=== PATIENT | male | born 1955 | race Caucasian/White ===

== ENCOUNTER 2017-01-03 14:53 | Outpatient (CLI) | payer BC ==
--- NOTE | 2017-01-05 14:10 | Ultrasound Report ---
BILATERAL CAROTID ARTERY ULTRASOUND: 01/03/2017 CLINICAL HISTORY: Pulse in his ears. Examination was done with a Ning color Doppler scanning system. TECHNIQUE: Real-time sonographic vascular imaging was performed by the coastal tug mate through the carotid arteries utilizing both color-flow and Doppler spectral analysis. Multiple veterans employment representative static images were saved for review. Vessel PSV cm/sec 2D Plaque Estimate % ICA/CCA PSV EDV cm/sec % Stenosis RCCA Prox 104 -- RCCA Dist 80 22 RECA 190 -- RT BULB 78 -- 0.98 24 TAMIR Prox 71 -- 0.89 23 TAMIR Mid 76 -- 0.95 24 TAMIR Dist 90 -- 1.13 30 RVA 47 RVA flow direction: Antegrade. Vessel PSV cm/sec 2D Plaque Estimate % ICA/CCA PSV EDV cm/sec % Stenosis LCCA Prox 106 -- LCCA Dist 79 24 LECA 168 -- LFT BULB 50 -- 0.63 17 LICA Prox 82 -- 1.04 32 LICA Mid 75 -- 0.95 35 LICA Dist 46 -- 0.58 17 LVA 79 LVA flow direction: Antegrade. Velocity criteria are extrapolated from diameter data as defined by the Society of Radiologists in Ultrasound Consensus Conference Radiology 2003; 229; 340- 346. Degree of Stenosis % ICA PSV cm/sec Plaque Estimate % ICA/CCA RSV Ratio ICA EDV cm/sec Normal < 125 None < 2.0 < 40 <50 < 125 < 50 < 2.0 < 40 50-69 125 - 130 >/= 50 2.0 - 4.0 40 - 100 >/= 70 but less than near occlusion > 230 >/= 50 > 4.0 > 100 Near occlusion High, low, or undetectable Visible lumen Variable Variable Total occlusion Undetectable No detectable lumen Not applicable Not applicable FINDINGS: Mild to moderate plaque is noted at each carotid artery bifurcation with no hemodynamically significant stenosis in either common or internal carotid artery. Doppler values are slightly elevated in each external carotid artery. Visually, however, no significant stenosis was detected in the external carotid arteries. Vertebral arteries bilaterally show antegrade flow. IMPRESSION: MILD TO MODERATE PLAQUE IS DETECTED AT EACH CAROTID ARTERY BIFURCATION WITH NO HEMODYNAMICALLY SIGNIFICANT STENOSIS DETECTED. MTDD
== END 2017-01-03 14:54 | disposition home or self-care (01) ==
LOC: DI 14:53
PROVIDERS: ATTEND Nurse Practitioner Family
DX: H93.19 Tinnitus, unspecified ear (principal)
CPT/HCPCS: 93880

== ENCOUNTER 2017-03-18 12:12 | Outpatient (CLI) | payer BC ==
--- NOTE | 2017-03-18 16:26 | XRAY Report ---
THREE-VIEW RIGHT KNEE: 03/18/2017 CLINICAL INDICATION: Lr's cyst. FINDINGS: AP, lateral, sunrise views of the right knee demonstrate no evidence of fracture or disloc ation. A tiny osteophyte is noted on the superior patella. No radiopaque foreign body is seen in th e soft tissues. No joint effusion is present. IMPRESSION: TINY MARGINAL OSTEOPHYTE ON THE SUPERIOR PATELLA. JOB #: [id number] EXT JOB #:[id number]
== END 2017-03-18 12:13 | disposition home or self-care (01) ==
LOC: DI.S 12:12
PROVIDERS: ATTEND Family Medicine
DX: M71.21 Synovial cyst of popliteal space [Baker], right knee (principal)

== ENCOUNTER 2017-06-28 13:22 | Outpatient (CLI) | payer BC ==
--- NOTE | 2017-06-28 19:34 | XRAY Report ---
TWO VIEW THORACIC SPINE: 06/28/2017 CLINICAL INDICATION: Pain. Frontal and lateral views of the thoracic spine demonstrate mild degenerative disk disease. Minimal dextroscoliosis is present. No paraspinal hematoma is seen. IMPRESSION: MILD DEGENERATIVE DISK DISEASE, WITH MINIMAL DEGENERATIVE DEXTROSCOLIOSIS. NO EVIDENCE OF FRACTURE. JOB #: [id number] EXT JOB #:[id number]
--- NOTE | 2017-06-28 19:39 | XRAY Report ---
THREE VIEW RIGHT SHOULDER: 06/28/2017 CLINICAL INDICATION: Pain. Internal and external rotational views and a scapular Y-view of the right shoulder demonstrate no nishant dence of fracture or dislocation. The joint spaces are preserved. No radiopaque foreign body is see n in the soft tissues. IMPRESSION: NORMAL RIGHT SHOULDER. JOB #: [id number] EXT JOB #:[id number]
== END 2017-06-28 13:23 | disposition home or self-care (01) ==
LOC: DI.S 13:22
PROVIDERS: ATTEND Physician Assistant
DX: M25.511 Pain in right shoulder (principal); M51.34 Other intervertebral disc degeneration, thoracic region; M41.54 Other secondary scoliosis, thoracic region
CPT/HCPCS: 72070

== ENCOUNTER 2017-09-16 08:53 | Inpatient (IN) | payer BC ==
--- NOTE | 2017-09-16 09:22 | ED Physician Documentation ---
PD HPI FOCAL NEURO - Stated complaint Stated Complaint: SPEECH DIFFICULTIES - Chief complaint Chief Complaint: Neuro - History obtained from History obtained from: Patient, Family () - History of Present Illness Timing - onset: Yesterday Timing - details: Still present Severity of deficit: Moderate Associated symptoms: Other (slurred speech; difficulty finding words.) Baseline status: positive: A&OX3, ambulatory, indep Similar symptoms before: Has not had sx before - Additional information Additional information: The patient is a 62-year-old male who presents with slurred speech and difficulty finding words. His symptoms started yesterday (according to his 's observation) or the day before (according to the patient) and persists today. He denies numbness or weakness. He denies headache, visual disturbance , chest pain, nausea, or vomiting. He denies history of similar symptoms in the past. Past medical history is significant for pulsatile tinnitus. He underwent carotid duplex scan in March 2017, which he states revealed no significant stenosis. Review of Systems Constitutional: denies: Fever, Fatigue Eyes: denies: Decreased vision Ears: reports: Tinnitus/ringing (History of tinnitus, but none currently.) Nose: denies: Congestion Throat: denies: Sore throat Cardiac: denies: Chest pain / pressure Respiratory: denies: Dyspnea, Cough GI: denies: Abdominal Pain, Nausea, Vomiting : denies: Dysuria Skin: denies: Rash Musculoskeletal: denies: Back pain, Extremity pain Neurologic: reports: Difficulty speaking. denies: Focal weakness, Numbness, Altered mental status, Headache PD PAST MEDICAL HISTORY - Past Medical History Cardiovascular: None Respiratory: None Neuro: Other (Pulsatile tinnitus) Endocrine/Autoimmune: None - Past Surgical History Ortho: Other (Knee surgery) - Present Medications Home Medications: Ambulatory Orders Medication Instructions Recorded Confirmed No Known Home Medications [No 09/16/17 09/16/17 Known Home Medications] - Allergies Allergies/Adverse Reactions: Allergies Allergy/AdvReac Type Severity Reaction Status Date / Time No Known Drug Allergies Allergy Verified 09/16/17 09:11 - Living Situation Living Situation: reports: With spouse/s.o. Living Arrangement: reports: At home - Social History Does the pt smoke?: No Does the pt drink ETOH?: Yes - Immunizations Immunizations are current?: Yes PD ED PE NORMAL - Vitals Vital signs reviewed: Yes (Hypertensive) - General General: Alert and oriented X 3, Well developed/nourished - HEENT HEENT: Atraumatic, PERRL, EOMI, Moist mucous membranes, Pharynx benign - Neck Neck: Supple, no meningeal sign, No adenopathy, No JVD - Cardiac Cardiac: RRR, No murmur - Respiratory Respiratory: No respiratory distress, Clear bilaterally - Abdomen Abdomen: Soft, Non tender - Back Back: No CVA TTP - Derm Derm: No rash - Extremities Extremities: No edema, No calf tenderness / cord - Neuro Neuro: Alert and oriented X 3, biochemistry specialist 2-12 intact, No motor deficit, No sensory deficit, Other (Struggles to articulate the words he wants to speak. Enunciates words with difficulty.) Eye Opening: Spontaneous Motor: Obeys Commands Verbal: Oriented GCS Score: 15 NIHSS - Time Time: 09:05 - Level of Consciousness Level of consciousness: (0) Alert, Keenly responsive LOC Questions: (0) Answers both Q's correct LOC Commands: (0) Performs both correctly - Gaze Best Gaze: (0) Normal - Visual Visual: (0) No loss - Facial Palsy Facial Palsy: (0) Normal, symmetrical movement - Motor Arms (both separate) Motor Arm (right): (0) No drift Motor Arm (left): (0) No drift - Motor Legs (both separate) Motor Leg (right): (0) No drift Motor Leg (left): (0) No drift - Limb Ataxia Limb Ataxia: (0) Absent - Sensory Sensory: (0) Normal - Best Language Best Language: (1) [id number] - Dysarthria Dysarthria: (0) Normal - Extinction and Inattention (formally neg Extinction and inattention: (0) No abnormality - Total Score/Results Total Score/Result: 1 Results - Vitals Vitals: Vital Signs - 24 hr 09/16/17 09/16/17 09/16/17 09:01 09:30 10:35 Temperature 36.5 C Heart Rate 74 72 71 Respiratory 25 H 20 14 Rate Blood Pressure 170/100 H 170/100 H 177/88 H O2 Saturation 25 L 96 96 09/16/17 11:57 Temperature Heart Rate 78 Respiratory 20 Rate Blood Pressure 183/77 H O2 Saturation 96 Oxygen O2 Source Room air - EKG (time done) 09:15 Rate: Rate (enter#) (72) Rhythm: NSR, LAE [place]: Normal Intervals: Normal ND QRS: LVH Ischemia: ST elevation c/w repol Compare to prior EKG: Old EKG unavailable Computer interpretation: Agree with computer - Labs Labs: Laboratory Tests 09/16/17 09/16/17 09/16/17 09:10 09:10 09:10 WBC 7.7 RBC 5.40 Hgb 15.8 Hct 47.7 MCV 88.3 MCH 29.2 MCHC 33.1 RDW 13.5 Plt Count 342 MPV 8.8 Neut # 4.6 Lymph # 2.1 [place] # 0.8 Eos # 0.1 Baso # 0.1 Absolute Nucleated RBC 0.01 Nucleated RBC % 0.1 PT 11.3 INR 1.0 APTT 32.1 Sodium 139 Potassium 3.7 Chloride 97 L Carbon Dioxide 28 Anion Gap 14.0 H BUN 16 Creatinine 0.9 Estimated GFR (MDRD) 86 L Glucose 101 H Calcium 9.9 Total Bilirubin 0.7 AST 26 ALT 23 Alkaline Phosphatase 65 Total Protein 7.8 Albumin 4.8 Globulin 3.0 Albumin/Globulin Ratio 1.6 Lipase 39 - Rads (name of study) Head CT stroke protocol Radiology: Prelim report reviewed, EMP read contemporaneously, See rad report ( Possible left hyperdense MCA sign, with possible areas of early left MCA territory edema. Low threshold for MRI.) PD MEDICAL DECISION MAKING - ED course Complexity details: reviewed results, re-evaluated patient, considered differential, d/w patient, d/w family, d/w water resource consultant ED course: The patient's presentation is most consistent with CVA involving the left middle cerebral artery distribution. CT scan stroke protocol reveals no intracranial hemorrhage, but does reveal possible left hyperdense MCA sign with possible areas of early left MCA territory edema. I discussed his condition with neurologist at [facility]. He recommends further stroke workup at this hospital, and advises no benefit to transferring to an acute care facility. Treatment in the emergency department included administration of 4 baby aspirin orally. I discussed his presentation with Dr. Fontanez, the hospitalist, who will admit him for further evaluation and treatment. Departure - Departure Disposition: 66 [facility] DC/Xfer Clinical Impression: Cerebrovascular accident (CVA) Qualifiers: Precerebral and cerebral artery: middle cerebral artery Laterality of affected vessel: left Condition: Stable Discharge Date/Time: 09/16/17 12:55
[2017-09-16 09:30] LABS: BASOPHILS # (AUTO) 0.1 10^3/uL (0.0-0.1); BASOPHILS % (AUTO) 1.1 %; EOSINOPHILS # (AUTO) 0.1 10^3/uL (0.0-0.7); EOSINOPHILS % (AUTO) 1.5 %; HGB - HEMOGLOBIN 15.8 g/dL (14.0-18.0); LYMPHOCYTES # (AUTO) 2.1 10^3/uL (1.5-3.5); MEAN CORPUSCULAR HEMOGLOBIN 29.2 pg (27.0-31.0); MEAN CORPUSCULAR HGB CONC 33.1 g/dL (32.0-36.0); MEAN CORPUSCULAR VOLUME 88.3 fL (80.0-94.0); MEAN PLATELET VOLUME 8.8 fL (7.4-11.4); MONOCYTES # (AUTO) 0.8 10^3/uL (0.0-1.0); MONOCYTES % (AUTO) 10.3 %; NEUTROPHILS # (AUTO) 4.6 10^3/uL (1.5-6.6); NEUTROPHILS % (AUTO) 60.1 %; PLT - PLATELET COUNT 342 10^3/uL (130-450); RED CELL DISTRIBUTION WIDTH 13.5 % (12.0-15.0); WHITE BLOOD COUNT 7.7 x10^3/uL (4.8-10.8)
[2017-09-16 09:41] LABS: PT - PROTHROMBIN TIME 11.3 secs (9.9-12.6)
[2017-09-16 09:44] LABS: ALBUMIN 4.8 g/dL (3.2-5.5); ALBUMIN/GLOBULIN RATIO 1.6 (1.0-2.2); BILIRUBIN,TOTAL 0.7 mg/dL (0.2-1.0); CALCIUM 9.9 mg/dL (8.5-10.3); CREATININE 0.9 mg/dL (0.6-1.2); TOTAL PROTEIN 7.8 g/dL (6.7-8.2)
--- NOTE | 2017-09-16 09:48 | CT Report ---
EXAM: CT HEAD EXAM DATE: 09/16/2017 09:28 AM. CLINICAL HISTORY: Slurred speech. COMPARISON: None. TECHNIQUE: Multiaxial CT images were obtained from the foramen magnum to the vertex. Reformats: Coron al. IV contrast: None. In accordance with CT protocol optimization, one or more of the following dose reduction techniques w ere utilized for this exam: automated exposure control, adjustment of mA and/or KV based on patient s ize, or use of iterative reconstructive technique. FINDINGS: Parenchyma: There is a prominent appearance of the left MCA. It measures 45 Hounsfield units, borderl ine increased and concerning for a possible hyperdense MCA sign. In addition, there are subtle areas of low-attenuation in the MCA territory deep white matter that co uld represent early edema. There is a 7 mm low attenuating focus adjacent to the left frontal horn de ep white matter, likely a small lacunar infarct of uncertain chronicity. Extraaxial Spaces: Normal for age. No subdural or epidural collections identified. Ventricles: Normal in size and position. Sinuses and Orbits: Imaged paranasal sinuses, orbits, and mastoids show no significant abnormality. Bones: No evidence of fracture or calvarial defect. IMPRESSION: Possible left hyperdense MCA sign, with possible areas of early left MCA territory edema. Low threshold for MRI. Note: These critical results were discussed with Dr. Holland on the day of the exam 09/16/2017 at 9:42 AM, and he expressed understanding. RADIA Referring Provider Line: [phone] SITE ID: [id number]
[2017-09-16] MEDS ORDERED: ASPIRIN CHEW 81 MG TABLET PO STA (09:52)
[2017-09-16] MEDS ORDERED: ACETAMINOPHEN 325 MG TABLET PO PRN (12:26)
[2017-09-16] MEDS ORDERED: PROCHLORPERAZINE 10 MG/2 ML VIAL IVP PRN (12:26)
[2017-09-16] MEDS ORDERED: SODIUM CHLORIDE FLUSH 0.9% 10 ML SYRINGE IVP PRN (12:26)
[2017-09-16] MEDS ORDERED: ZOLPIDEM 5 MG TABLET PO PRN (12:26)
[2017-09-16] MEDS ORDERED: GADOBUTROL 7.5 MMOL/7.5 ML VIAL ONE (13:11)
[2017-09-16] MEDS ORDERED: GADOBUTROL 7.5 MMOL/7.5 ML VIAL IVP ONE (15:03)
[2017-09-16] MEDS: SODIUM CHLORIDE FLUSH 0.9% 10 ML SYRINGE IVP SCH ×2 (15:30→20:59)
--- NOTE | 2017-09-16 16:32 | MRI Report ---
EXAMS: MRI BRAIN WITHOUT CONTRAST. MRA BRAIN WITHOUT CONTRAST. EXAM DATE: 09/16/2017 03:27 PM. CLINICAL HISTORY: 8-year-old with 9 month history of pulsatile tinnitus presenting with 1-2 days of s lurred speech COMPARISON: CT head 09/16/2017. TECHNIQUE: MRI: Multiplanar, multisequence T1-weighted and fluid-sensitive MRI sequences of the brain were performed. Sequences optimized for routine evaluation. Other: None. Post-processing: None. IV C ontrast: None. MRA: Multiplanar, multisequence T1-weighted and fluid-sensitive MRA sequences of the brain were perfo rmed. Other: None. Post-processing: Multiplanar 3D MIP reconstructions. IV Contrast: None. FINDINGS: MRI: Brain Volume: Normal for age. Parenchyma/Dura: No acute parenchymal hemorrhage, mass, or midline shift. There is mild bilateral are as of T2/FLAIR signal hyperintensity seen. There is small volume restricted diffusion of the left put amen extending to the left centrum semiovale. No evidence of hemorrhagic transformation. There is ass ociated T2/FLAIR signal hyperintensity. Punctate foci of old hemorrhagic blood products are seen with in the right putamen and right precuneus region. Ventricles/Cisterns: No hydrocephalus. No abnormal extra-axial fluid collection or hemorrhage. Orbits: Symmetric and unremarkable. Sella Turcica: The pituitary gland, cavernous sinuses, suprasellar cistern and optic chiasm are unrem arkable. IAC: Symmetric and unremarkable. Vasculature: Normal signal flow void is seen in the major arterial structures at the skull base. Sinuses: No acute appearing sinus disease. Bones: No focal pathologic appearing marrow signal changes. Other: None. MRA: RIGHT Internal Carotid (ICA): No aneurysm, stenosis or anomaly. Middle Cerebral (MCA): No aneurysm, stenosis or anomaly. Anterior Cerebral (VINCE): Hypoplastic right A1 segment with normal-appearing A2 and distal VINCE branche s secondary to flow through the anterior communicating artery. No aneurysm. Posterior Cerebral (REGISTERED ACCOUNT ADMINISTRATOR): -type REGISTERED ACCOUNT ADMINISTRATOR with a hypoplastic right P1 segment. No aneurysm. Posterior Communicating (P-COM): No aneurysm, stenosis or anomaly. 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 LEFT Internal Carotid (ICA): No aneurysm, stenosis or anomaly. Middle Cerebral (MCA): The M1 segment appears normal. There is greater than 70% stenosis of a proxima l M2 sylvian branch. Anterior Cerebral (VINCE): No aneurysm, stenosis or anomaly. Posterior Cerebral (REGISTERED ACCOUNT ADMINISTRATOR): REGISTERED ACCOUNT ADMINISTRATOR. No aneurysm. Posterior Communicating (P-COM): No aneurysm, stenosis or anomaly. Vertebral: No aneurysm, stenosis or anomaly in the visualized upper vertebral artery. MIDLINE Anterior Communicating (A-COM): No aneurysm, stenosis or anomaly. 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 Other: None. IMPRESSION: MRI HEAD: 1.Small acute infarct (1-7 days) of the left putamen to left centrum semiovale. No evidence of hemor rhagic transformation. 2. Additional mild white matter changes that may represent sequela of chronic small vessel ischemic d isease. 3. Old hemorrhagic blood products are seen within the right putamen and right precuneus region. Etiol ogies include microhemorrhages from hypertension or old hemorrhagic lacunar infarcts. 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 2. There is greater than 70% stenosis of a proximal M2 sylvian branch of the left MCA. 3. 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 4. 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 5. No definite intracranial aneurysm seen. RADIA The above findings were discussed with Dr Palma by Dr. Alvino Rice at 16:30 hrs on 09/16/17. Referring Provider Line: [phone] SITE ID: [id number]
--- NOTE | 2017-09-16 16:32 | MRI Report ---
EXAM: MR ANGIOGRAM NECK EXAM DATE: 09/16/2017 03:27 PM. CLINICAL HISTORY: 62-year-old with 1-2 history of slurred speech COMPARISON: None. TECHNIQUE: Multiplanar, multisequence MRA sequences of the neck were performed. Other: None. Post-pro cessing: Multiplanar 3D MIP reconstructions. IV Contrast: 7 cc Gadavist. Evaluation of arterial sten osis is based on a NASCET method of measurement. FINDINGS: RIGHT Common Carotid: Patent. No dissection or significant stenosis. Internal Carotid: Patent. No dissection or significant stenosis. External Carotid: Patent. No dissection or significant stenosis. 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 LEFT Common Carotid: Patent. No dissection or significant stenosis. Internal Carotid: Patent. No dissection or significant stenosis. External Carotid: Patent. No dissection or significant stenosis. Vertebral: Patent. No dissection or significant stenosis. Intracranial Circulation: Please refer to separately dictated MRA head for further description of int racranial findings. Other: The soft tissues, bones, and lung apices are unremarkable. IMPRESSION: 1. Hypoplastic right vertebral artery appears terminates as right PICA. 2. Otherwise no seen definite stenosis or dissection seen within the vasculature of the neck. 3. Please refer to separately dictated MRA head 09/16/2017 for description of intracranial findings. RADIA The above findings were discussed with Dr Palma by Dr. Alvino Rice at 16:30 hrs on 09/16/17. Referring Provider Line: [phone] SITE ID: [id number]
--- NOTE | 2017-09-16 16:32 | MRI Report ---
EXAMS: MRI BRAIN WITHOUT CONTRAST. MRA BRAIN WITHOUT CONTRAST. EXAM DATE: 09/16/2017 03:27 PM. CLINICAL HISTORY: 8-year-old with 9 month history of pulsatile tinnitus presenting with 1-2 days of s lurred speech COMPARISON: CT head 09/16/2017. TECHNIQUE: MRI: Multiplanar, multisequence T1-weighted and fluid-sensitive MRI sequences of the brain were performed. Sequences optimized for routine evaluation. Other: None. Post-processing: None. IV C ontrast: None. MRA: Multiplanar, multisequence T1-weighted and fluid-sensitive MRA sequences of the brain were perfo rmed. Other: None. Post-processing: Multiplanar 3D MIP reconstructions. IV Contrast: None. FINDINGS: MRI: Brain Volume: Normal for age. Parenchyma/Dura: No acute parenchymal hemorrhage, mass, or midline shift. There is mild bilateral are as of T2/FLAIR signal hyperintensity seen. There is small volume restricted diffusion of the left put amen extending to the left centrum semiovale. No evidence of hemorrhagic transformation. There is ass ociated T2/FLAIR signal hyperintensity. Punctate foci of old hemorrhagic blood products are seen with in the right putamen and right precuneus region. Ventricles/Cisterns: No hydrocephalus. No abnormal extra-axial fluid collection or hemorrhage. Orbits: Symmetric and unremarkable. Sella Turcica: The pituitary gland, cavernous sinuses, suprasellar cistern and optic chiasm are unrem arkable. IAC: Symmetric and unremarkable. Vasculature: Normal signal flow void is seen in the major arterial structures at the skull base. Sinuses: No acute appearing sinus disease. Bones: No focal pathologic appearing marrow signal changes. Other: None. MRA: RIGHT Internal Carotid (ICA): No aneurysm, stenosis or anomaly. Middle Cerebral (MCA): No aneurysm, stenosis or anomaly. Anterior Cerebral (VINCE): Hypoplastic right A1 segment with normal-appearing A2 and distal VINCE branche s secondary to flow through the anterior communicating artery. No aneurysm. Posterior Cerebral (AUTO SERVICE ADVISOR): -type AUTO SERVICE ADVISOR with a hypoplastic right P1 segment. No aneurysm. Posterior Communicating (P-COM): No aneurysm, stenosis or anomaly. 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 LEFT Internal Carotid (ICA): No aneurysm, stenosis or anomaly. Middle Cerebral (MCA): The M1 segment appears normal. There is greater than 70% stenosis of a proxima l M2 sylvian branch. Anterior Cerebral (VINCE): No aneurysm, stenosis or anomaly. Posterior Cerebral (AUTO SERVICE ADVISOR): AUTO SERVICE ADVISOR. No aneurysm. Posterior Communicating (P-COM): No aneurysm, stenosis or anomaly. Vertebral: No aneurysm, stenosis or anomaly in the visualized upper vertebral artery. MIDLINE Anterior Communicating (A-COM): No aneurysm, stenosis or anomaly. 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 Other: None. IMPRESSION: MRI HEAD: 1.Small acute infarct (1-7 days) of the left putamen to left centrum semiovale. No evidence of hemor rhagic transformation. 2. Additional mild white matter changes that may represent sequela of chronic small vessel ischemic d isease. 3. Old hemorrhagic blood products are seen within the right putamen and right precuneus region. Etiol ogies include microhemorrhages from hypertension or old hemorrhagic lacunar infarcts. 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 2. There is greater than 70% stenosis of a proximal M2 sylvian branch of the left MCA. 3. 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 4. 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 5. No definite intracranial aneurysm seen. RAD[facility] The above findings were discussed with Dr Palma by Dr. Alvino Rice at 16:30 hrs on 09/16/17. Referring Provider Line: [phone] SITE ID: [id number]
[2017-09-16] MEDS ORDERED: ASPIRIN CHEW 81 MG TABLET PO SCH (17:00)
[2017-09-16] MEDS ORDERED: CLOPIDOGREL 300 MG TABLET PO ONE (17:02)
[2017-09-16] MEDS: CARVEDILOL 3.125 MG TABLET PO SCH ×2 (18:44→20:55)
--- NOTE | 2017-09-16 21:59 | Ultrasound Preliminary Report ---
Exam: US CAROTID DOPPLER COMPLETE IMPRESSION: Bilateral predominantly soft carotid artery plaque with no hemodynamically significant st enosis. Validated velocity measurements with angiographic measurements and velocity criteria are extrapolated from diameter data as defined by the Society of Radiologists in Ultrasound Consensus Conference Radi ology 2003; 229;340-346. RADIA SITE ID: [id number]
[2017-09-16] MEDS ORDERED: ATORVASTATIN 40 MG TABLET PO SCH (22:00)
--- NOTE | 2017-09-16 22:21 | Ultrasound Report ---
EXAM: CAROTID DOPPLER ULTRASOUND EXAM DATE: 09/16/2017 05:19 PM. CLINICAL HISTORY: CVA. COMPARISON: None. TECHNIQUE: Real-time sonographic vascular imaging was performed by the manager progressive care through the [employer] d arterial system with a linear transducer utilizing color-flow, Doppler flow and spectral analysis. Multiple circulation sales representative static images were saved for review. FINDINGS: Chavez scale evaluation of the carotid arteries demonstrates mild, predominantly soft plaque in the right common and proximal internal carotid artery. Mild to moderate soft plaque also seen in t he distal left common and internal carotid artery. Peak systolic velocities and ICA/CCA ratios are wi thin normal limits as follows Right: RCCA Prox: PSV 84 cm/sec. RCCA Dist: PSV 82 cm/sec, EDV 17 cm/sec. RECA: PSV 130 cm/sec. RT BULB: PSV 67 cm/sec, EDV 17 cm/sec, ICA/CCA ratio 0.81. TAMIR Prox: PSV 63 cm/sec, EDV 26 cm/sec, ICA/CCA ratio 0.76. TAMIR Mid: PSV 76 cm/sec, EDV 20 cm/sec, ICA/CCA ratio 0.92. TAMIR Dist: PSV 55 cm/sec, EDV 16 cm/sec, ICA/CCA ratio 0.67, tortuous. RVA: PSV 37 cm/sec. RVA flow direction: Antegrade. Abnormal waveform but antegrade. Left: LCCA Prox: PSV 83 cm/sec. LCCA Dist: PSV 67 cm/sec, EDV 20 cm/sec. LECA: PSV 105 cm/sec. LT BULB: PSV 85 cm/sec, EDV 18 cm/sec, ICA/CCA ratio 1.26. LICA Prox: PSV 80 cm/sec, EDV 30 cm/sec, ICA/CCA ratio 1.19. LICA Mid: PSV 94 cm/sec, EDV 41 cm/sec, ICA/CCA ratio 1.40. LICA Distal: PSV 64 cm/sec, EDV 24 cm/sec, ICA/CCA ratio 0.95. LVA: PSV 47 cm/sec. LVA flow direction: Antegrade. Other: None. IMPRESSION: Bilateral predominantly soft carotid artery plaque with no hemodynamically significant st enosis. Validated velocity measurements with angiographic measurements and velocity criteria are extrapolated from diameter data as defined by the Society of Radiologists in Ultrasound Consensus Conference Radi ology 2003; 229;340-346. [facility] Referring Provider Line: [phone] SITE ID: [id number]
[2017-09-17] MEDS: SODIUM CHLORIDE FLUSH 0.9% 10 ML SYRINGE IVP SCH (05:45)
[2017-09-17 06:51] LABS: BUN - BLOOD UREA NITROGEN 15 mg/dL (6-20); CALCIUM 9.2 mg/dL (8.5-10.3); CARBON DIOXIDE - CO2 28 mmol/L (21-32); CHLORIDE 98 mmol/L (101-111); CHOLESTEROL 232 mg/dL; CREATININE 0.9 mg/dL (0.6-1.2); GFR - MDRD 86 (>89); GLUCOSE 114 mg/dL (70-100); HDL CHOLESTEROL 58 mg/dL; LDL CHOLESTEROL,CALCULATED 153 mg/dL; LDL/HDL RATIO 2.6 (<3.6); SODIUM 139 mmol/L (135-145); VLDL CHOLESTEROL 21 mg/dL
[2017-09-17 07:44] VITALS: BP 163/86
[2017-09-17] MEDS ORDERED: ASPIRIN 325 MG TABLET PO SCH (08:00)
[2017-09-17] MEDS: CARVEDILOL 3.125 MG TABLET PO SCH (08:01)
[2017-09-17] MEDS ORDERED: FAMOTIDINE 20 MG TABLET PO SCH (09:00)
[2017-09-17] MEDS ORDERED: ASPIRIN CHEW 81 MG TABLET PO SCH (09:00)
[2017-09-17] MEDS ORDERED: CLOPIDOGREL 75 MG TABLET PO SCH (09:00)
[2017-09-17] MEDS ORDERED: POLYETHYLENE GLYCOL 3350 17 GM PACKET PO SCH (09:00)
--- NOTE | 2017-09-17 09:16 | Discharge Plan ---
Discharge Plan Disposition: Home, Self Care Condition: Stable Prescriptions: Atorvastatin Calcium [Lipitor] 80 mg PO DAILY #30 tablet Carvedilol [Coreg] 3.125 mg PO BID #60 tablet Clopidogrel [Plavix] 75 mg PO DAILY #30 tablet Diet: Cardiac Activity Restrictions: No strenuous activity til seen by Shower Restrictions: No Driving Restrictions: No Instruction Topics: Atorvastatin tablets, Clopidogrel Bisulfate Oral tablet, Carvedilol tablets, Hypertension Dc, Heart Risk, ED Stroke Completed, ED Cholesterol High Additional Instructions or Follow Up instructions: Start taking : 1 baby Aspirin daily Plavix daily Lipitor daily (at night) Coreg twice a day (with meals) Make an appointment at [facility] to be seen soon. Make an appointment at a Speech Therapy clinic. If you have any new neurological symptoms, go to your closest ER quickly. No strenuous exercise and decrease your workload at your place of employment for approximately the next 4 weeks (or til OKd to resume it, by your PCP or Draw In Hand). See your PCP in 1-2 weeks in follow-up and to be referred to a Draw In Hand for stress testing and BP and cholesterol management. No Smoking: If you smoke, Please STOP! Call for help. Follow-up with: Zora Celaya PA [Primary Care Provider] -
--- NOTE | 2017-09-17 20:06 | HISTORY & PHYSICAL EXAMINATION ---
DATE OF SERVICE: 09/16/2017 Physician: Siria Palma MD DATE OF ADMISSION: 09/16/2017. HISTORY OF PRESENT ILLNESS: This is a 62-year-old white male who takes no prescription medications. He remembers being told that he had hypertension and was advised to start antihypertensives but never did because he "does not believe in taking medications." (He told me that he thinks that blood pressure medications "do more harm than good.") The patient reports that he has had increased stress over the past 1 month related to his work. He states that about 2-1/2 days ago, he developed a foggy feeling and inability to find the right words, requiring forced slow speech to say his feelings clearly. 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 He denied any headache, double vision, weakness in any extremities. There was recent diarrhea about a week previously that lasted for approximately 4 days, and he thought this was from eating bad food. There have been no changes in medications or recent trips. He did tell his about these feelings. She urged him to come to the emergency room, and he finally did, approximately 2-1/2 days after the onset of symptoms. In the emergency room, his brain imaging does show evidence of a subacute stroke , and therefore, he is admitted for management. PAST MEDICAL HISTORY: Probable hypertension, according to the patient, and he denies any other past medical history. MEDICATIONS AT HOME: None. The patient then states that he does take a baby aspirin daily but "did not consider this a daily medication" ALLERGIES: NONE. REVIEW OF SYSTEMS: The patient has suffered episodic tinnitus and has not yet sought medical attention for this. He had recent diarrhea as above, now cleared. Other than these symptoms, a comprehensive review of systems was performed and is negative except for above. FAMILY HISTORY: On his father's side, there is heart disease, and his uncle on the mother's side had heart disease. SOCIAL HISTORY: The patient is a nonsmoker who never smoked, drinks social alcohol, has never used illicit drugs; however, he has recently used some topical marijuana application. PHYSICAL EXAMINATION GENERAL: A white male who is in no distress but does appear anxious. VITAL SIGNS: Blood pressure 170/100 and as high as 183/77 in the emergency room. Pulse is 70-80, in sinus rhythm. He is afebrile. Respiratory rate was 25 on presentation, which was felt to be from being anxious. Currently, his respiratory rate is 18. HEENT: Possible asymmetry to his lower face with a droop on the right side, otherwise normal wexcept he is wearing glasses. His oral mucosa is moist. Retinal exam showed no areas of retinal hemorrhage or AV nicking with normal-appearing retinal vessels. NECK: No JVD. No carotid bruits are heard. No thyromegaly or lymphadenopathy. LUNGS: Clear. HEART: Heart sounds normal. No audible murmur. ABDOMEN: Soft, normal bowel sounds, nontender. No organomegaly or ascites. EXTREMITIES: No clubbing, cyanosis or edema. NEUROLOGIC: Motor strength is equal bilaterally in the upper and lower extremities. Sensory exam is grossly normal bilaterally. Balance tests are normal. Possible facial muscle asymmetry. He does have some slowing of speech and word finding difficulty. LABORATORY DATA: Sodium 139, potassium 3.7, BUN 16, creatinine 0.9. Normal liver tests. Troponin not detectable. CBC normal. INR normal. IMAGING: Chest x-ray was not done. His head CT showed: possible left hyperdense MCA sign with areas of early left MCA territory edema, and an MRI of the brain was recommended. EKG: Normal sinus rhythm, LVH voltage with strain pattern. No old EKG is available for comparison. IMPRESSION 1. Subacute cerebrovascular accident, documented by imaging. Symptoms are dysarthria and possibly facial droop. 2. Hypertension, which is poorly controlled and probably longstanding since there is evidence of left ventricular hypertrophy by electrocardiogram. 3. Tinnitus that is intermittent, never had workup. 4. Noncompliance with antihypertensive medication recommendations. PLAN: Admit the patient and place him on telemetry to rule out arrhythmia, specifically fibrillation as the cause for the stroke. Obtain imaging studies to rule out a source of embolus, including echo for clot and for intracardiac shunt and to evaluate for LVH, which is seen on EKG. Order troponins x3, since the EKG is abnormal, to rule out an NE. Obtain brain imaging, including brain MRI and MRA and neck MRA, also confirm with carotid Doppler. Start the patient on aspirin. Check lipids and treat per guidelines. The emergency room doctor has already spoken to the neurologist from [facility], our higher level contact center , who recommended that he does not need to be transferred to a higher level of care for these tests but that they can be performed here. This was discussed with the patient, including the overall plan. He initially was not amenable to starting blood pressure medications but eventually did agree. CODE STATUS: FULL CODE. Deep venous thrombosis prophylaxis: SCDs. No Lovenox or heparin will be used because of the possibility of hemorrhagic findings after a stroke, on brain imaging. ATTESTATION: The patient is expected to be discharged or transferred to another facility within 96 hours: Yes. TD: 09/17/2017 20:05 DEEPA
--- NOTE | 2017-09-28 05:27 | DISCHARGE SUMMARY ---
Physician: Siria Palma MD DATE OF ADMISSION: 09/16/2017 DATE OF DISCHARGE: 09/17/2017 HISTORY OF PRESENT ILLNESS: This is a 62-year-old white male who takes no prescription medications; however, was told that he has hypertension and advised to start antihypertensives, but never did because he "does not believe in taking medications and thinks they do more harm than good." The patient presented with a 2-1/2 day history of "foggy feeling", inability to find words and forced slow speech. He came to the emergency room at the urging of his and was placed in observation for evaluation of a TIA versus CVA. HOSPITAL COURSE AND DISCHARGE DIAGNOSES 1. Cerebrovascular accident. The patient's symptoms were minimally improved during his stay. His imaging studies showed the following: Head CT: Possible left hyperdense MCA sign with possible area of early left MCA territory edema consistent with a stroke. Carotid Doppler: Bilateral soft carotid artery plaque with no significant stenoses. Brain MRI: Small acute infarct of 1-7 days and age of the left putamen to the left centrum semiovale with no hemorrhagic transformation. Additional mild white matter changes that may represent sequelae of chronic small vessel ischemic disease. Old hemorrhagic blood products in the right putamen and right precuneus region, which may be from micro hemorrhages from hypertension or old hemorrhagic lacunar infarct. 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 Greater than 70 percent stenosis of a proximal M2, Sylvian branch of the left MCA. 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 No intracranial aneurysm. Neck MRA: Hypoplastic right vertebral artery, which terminates at the right PICA and no definitive stenoses or dissection in the vasculature of the neck. Echocardiogram: there was moderate to severe concentric LVH with EF mildly impaired at 45% with global hypokinesis and grade 1 diastolic dysfunction. RV normal in size and function, mild mitral regurgitation, trace tricuspid regurgitation with calculated PA pressure 23 mmHg. Trace pulmonic regurgitation. No intracardiac shunt by saline study. EKG showed normal sinus rhythm with marked LVH voltage. There was no atrial fibrillation seen on telemetry. The patient was started on daily oral aspirin and Plavix. His cholesterol was checked and showed a total cholesterol of 232, LDL 153, triglycerides 105, HDL 58. He was also put on atorvastatin 80 mg p.o. at bedtime. I had a long discussion with him regarding compliance and management of his stroke risk factors. The patient was initially resistant, but eventually agreed to take prescription medications. 2. Old lacunar infarcts versus hemorrhages from hypertension. Similar management as in #1. I stressed the importance of having good blood pressure control, taking antiplatelet agents, and cholesterol control. Regarding the stroke and findings of abnormal atherosclerotic and congenital vascular findings, I reached out to the [facility] [place] [facility] doctors on- call for this hospital, and reviewed all these findings, and medical management was advised, and no transfer was necessary because the symptoms were over 24 hours from starting. The patient was advised to be seen by a Neurologist at the referral of his PCP or to go to [facility] [place] [facility]. 3. Hypertension. There is evidence of end organ damage showing moderate concentric LVH on the echo and the global LV hypokinesis may also be related to this. The patient's creatinine was normal at 0.9 with an estimated GFR of 86. No urinalysis was performed. The patient was started on carvedilol 3.125 p.o. b.i.d. for treatment of both hypertension and his cardiomyopathy. Initially permissive hypertension was allowed, as advised by the neurology specialist. Further adjustments in blood pressure med dosage and other medications should be done as an outpatient. 4. Left ventricular hypertrophy. This was seen on both Echo and by EKG criteria. This was again explained to the patient with his present at bedside regarding the suspicion of longstanding poorly controlled hypertension as the cause. Medication compliance for hypertension control and cardiac treatment was strongly advised. The patient's and 's questions were answered to their satisfaction. 5. Cardiomyopathy. The patient was put on Coreg. No MARIBETH inhibitor was started in order to not drop his blood pressure excessively. This finding still requires evaluation for coronary disease, which should be done as an outpatient. Because of this, the patient was advised to do no strenuous exercise and decrease his workload at his employment over the next 1 month or until seen by his PCP and referred to a Engagement Executive for stress testing, blood pressure and cholesterol management. 6. Tinnitus. The patient had chronic complaints of tinnitus which were noted in discussion. 7. Noncompliance. The importance of treatment of heart and stroke risk factors was reviewed with the patient and his at length at the bedside and he was sent home with instructional literature regarding cholesterol control, Plavix use, Carvedilol use, hypertension control, cardiac risk factors, stroke education and cholesterol education. He was advised to begin speech therapy, be seen in the stroke clinic, have an appointment with a antisqueak applier and to take his medications. LABS AND IMAGING: reviewed and summarized above. ALLERGIES: NONE. MEDICATIONS AT THE TIME OF DISCHARGE 1. Aspirin 81 mg p.o. daily. 2. Plavix 75 mg p.o. daily. 3. Lipitor 80 mg p.o. at bedtime. 4. Coreg 3.125 p.o. b.i.d. CONDITION AT THE TIME OF DISCHARGE: Stable. PHYSICAL EXAMINATION: At the time of discharge: VITAL SIGNS: Blood pressure 163/86, heart rate 70 in sinus rhythm, afebrile, room air saturation 99%. HEENT: Unremarkable except for forced somewhat slow speech. NECK: No carotid bruits. No JVD. No thyromegaly or lymphadenopathy. CHEST: Clear. HEART: Sounds normal. ABDOMEN: Unremarkable. EXTREMITIES: Unremarkable. NEUROLOGIC: Motor and sensory exam grossly normal, balance normal, possible facial muscle asymmetry and slow forced speech. CODE STATUS: FULL CODE. FOLLOWUP: Speech Therapy clinic, PCP, Neurology, Cardiology. Total time required to complete this entire discharge: 60 minutes. TD: 09/28/2017 05:25 MTDD
== END 2017-09-17 09:30 | disposition home or self-care (01) | DRG 65 ==
LOC: ED 08:53 → MS2 12:26
PROVIDERS: ADMIT Internal Medicine; ATTEND Internal Medicine
DX: I63.542 Cerebral infarction due to unspecified occlusion or stenosis of left cerebellar artery (principal); Q28.1 Other malformations of precerebral vessels; R47.1 Dysarthria and anarthria; R29.810 Facial weakness; I65.1 Occlusion and stenosis of basilar artery; R40.2412 Glasgow coma scale score 13-15, at arrival to emergency department; I11.9 Hypertensive heart disease without heart failure; R29.701 NIHSS score 1; Z86.73 Personal history of transient ischemic attack (TIA), and cerebral infarction without residual deficits; E78.9 Disorder of lipoprotein metabolism, unspecified; Z91.14 Patient's other noncompliance with medication regimen
CPT/HCPCS: 36415; 70450; 70544; 70549; 70551; 80048; 80053; 80061; 83690; 83721; 84484; 85025; 85610; 85730; 86147; 93005; 93306; 93880; 99284; 99285

== ENCOUNTER 2021-12-16 08:14 | Outpatient (CLI) | payer BC ==
[2021-12-16 14:32] LABS: BASOPHILS # (AUTO) 0.1 10^3/uL (0.0-0.1); BASOPHILS % (AUTO) 0.9 %; EOSINOPHILS # (AUTO) 0.1 10^3/uL (0.0-0.7); EOSINOPHILS % (AUTO) 2.3 %; HCT - HEMATOCRIT 44.1 % (42.0-52.0); HGB - HEMOGLOBIN 14.7 g/dL (14.0-18.0); LYMPHOCYTES # (AUTO) 2.1 10^3/uL (1.5-3.5); LYMPHOCYTES % (AUTO) 36.1 %; MEAN CORPUSCULAR HEMOGLOBIN 30.3 pg (27.0-31.0); MEAN CORPUSCULAR HGB CONC 33.3 g/dL (32.0-36.0); MEAN CORPUSCULAR VOLUME 90.9 fL (80.0-94.0); MEAN PLATELET VOLUME 10.6 fL (7.4-11.4); MONOCYTES # (AUTO) 0.6 10^3/uL (0.0-1.0); MONOCYTES % (AUTO) 10.8 %; NEUTROPHILS # (AUTO) 2.9 10^3/uL (1.5-6.6); NEUTROPHILS % (AUTO) 49.6 %; PLT - PLATELET COUNT 324 10^3/uL (130-450); RED BLOOD COUNT 4.85 10^6/uL (4.70-6.10); RED CELL DISTRIBUTION WIDTH 13.4 % (12.0-15.0); WHITE BLOOD COUNT 5.7 x10^3/uL (4.8-10.8)
[2021-12-16 15:04] LABS: ALBUMIN 4.2 g/dL (3.2-5.5); ALBUMIN/GLOBULIN RATIO 1.8 (1.0-2.2); BILIRUBIN,TOTAL 0.8 mg/dL (0.2-1.0); CALCIUM 9.6 mg/dL (8.5-10.3); CREATININE 0.9 mg/dL (0.6-1.2); TOTAL PROTEIN 6.5 g/dL (6.7-8.2)
[2021-12-16 15:24] LABS: THYROID STIMULATING HORMONE 1.23 uIU/mL (0.34-5.60)
[2021-12-16 15:27] LABS: FREE T4 (FREE THYROXINE) 0.73 ng/dL (0.58-1.64)
== END 2021-12-16 08:15 | disposition home or self-care (01) ==
LOC: LAB.S 08:14
PROVIDERS: ATTEND Internal Medicine Cardiovascular Disease
DX: I10 Essential (primary) hypertension (principal)
CPT/HCPCS: 36415; 80053; 84402; 84439; 84443; 85025